=== PATIENT | female | born 1950 | race Caucasian/White ===

== ENCOUNTER 2017-05-05 15:21 | Emergency (ER) | payer OTHER, MEDICARE ==
[2017-05-05 15:26] VITALS: BP 97/55; PULSE 94; TEMP 97.6; BMI 29.0
--- NOTE | 2017-05-05 17:14 | PDOC ---
History of Present Illness <Jose Morley - Last Filed: 05/05/17 18:14> - General History Source: Patient Exam Limitations: No Limitations - History of Present Illness Initial Comments: 05/05/17 17:17 The patient is a 67 year old female, with a significant past medical history of CAD(s/p stents), MA, hypertension, hyperlipidemia, hypothyroidism, lower extremity neuropathy, and anemia, who presents to the emergency department s/p mechanical injury yesterday morning. The patient reports she bent over and accidentally hit her head on the corner of the cabinet. Patient denies any loss of consciousness or dizziness. She reports swelling at the site of the injury, but denies ecchymosis. Patient reports some fuzziness in her vision. Now, patient reports a mild headache, that was not there when she hit her head. She denies any weakness, fever, chills, cough, dizziness, lightheadedness, or ear pain. She denies any chest pain, shortness of breath, diaphoresis, or palpitations. She denies any abdominal pain, nausea, vomiting, diarrhea, constipation, or changes in urination. She denies any recent travel or sick contacts. Patient is on plavix. Allergies: NKDA Past Surgical History: Cardiac Stents(X5), Gastric bypass(2003) Social History: Non smoker. No ETOH or recreational drug use. <Erik Majano - Last Filed: 05/05/17 18:22> - General Chief Complaint: Injury Stated Complaint: HEAD CONTUSION/ON PLAVIX Time Seen by Provider: 05/05/17 15:42 Past History - Past Medical History Anemia: Yes (VIT B12 DEF ANEMIA) Asthma: No Cancer: (mid chest skin cancer removed; scab still visible 06/08/2015) Cardiac Disorders: Yes (heart attack-2005/ stents, MIX2) CVA: No COPD: Yes (NODULES IN LUNG) CHF: No Dementia: No Diabetes: No GI Disorders: Yes Disorders: No HTN: Yes Hypercholesterolemia: Yes Liver Disease: No Seizures: No Thyroid Disease: Yes (HYPO) - Surgical History Abdominal Surgery: Yes (TUMMY TUCK, LIPOSUCTION ON LOWER BODY, gastric bypass 2003) Appendectomy: No Cardiac Surgery: Yes (5 STENTS) Cholecystectomy: Yes Gastric Stapling: No (GASTRIC BYPASS) Lung Surgery: No Neurologic Surgery: No Orthopedic Surgery: No - Psycho/Social/Smoking Cessation Hx Anxiety: No Suicidal Ideation: No Smoking Status: No Smoking History: Never smoked Have you smoked in the past 12 months: No Number of Cigarettes Smoked Daily: 0 If you are a former smoker, when did you quit?: 15 Information on smoking cessation initiated: No Hx Alcohol Use: No Drug/Substance Use Hx: No Substance Use Type: None Hx Substance Use Treatment: No <Jose Morley - Last Filed: 05/05/17 18:14> <Erik Majano - Last Filed: 05/05/17 18:22> - Past Medical History Allergies/Adverse Reactions: Allergies Allergy/AdvReac Type Severity Reaction Status Date / Time No Known Allergies Allergy Verified 05/05/17 15:26 Home Medications: Ambulatory Orders Zoledronic Acid/Man/Water [Reclast 5 Mg/100 Ml -] 5 mg IV 06/08/12 Aspirin [ASA -] 81 mg PO DAILY 04/26/15 Atorvastatin Ca [Lipitor] 40 mg PO HS 04/26/15 Carvedilol [Coreg] 3.125 mg PO BID 04/26/15 Clopidogrel Bisulfate [Plavix -] 75 mg PO DAILY 04/26/15 Esomeprazole Mag Trihydrate [Nexium] 40 mg PO DAILY 04/26/15 Levothyroxine Sodium [Unithroid] 125 mcg PO DAILY 04/26/15 Lorazepam [Ativan] 0.5 mg PO PRN 04/26/15 Pregabalin [Lyrica] 100 mg PO BID 04/26/15 Polyethylene Glycol 3350 [Miralax] 17 gm PO BID #2 bottle 02/09/16 Cyanocobalamin Vit B-12 Inj. [Vitamin B12 Injection -] 1,000 mcg IJ ASDIR Multivitamin,Therapeutic [[place] Therapeutic] 240 ml PO DAILY 03/07/16 Zoledronic Acid/Mannitol-Water [Zoledronic Acid 5 mg/100 ml] 5 mg IV ASDIR 03/07 Review of Systems - Review of Systems Able to Perform ROS?: Yes Comments:: 05/05/17 17:17 GENERAL/CONSTITUTIONAL: No fever or chills. No weakness. HEAD, EYES, EARS, NOSE AND THROAT: Yes: +blurry vision, +swelling at site of injury. No ear pain or discharge. No sore throat. CARDIOVASCULAR: No chest pain or shortness of breath. RESPIRATORY: No cough, wheezing, or hemoptysis. GASTROINTESTINAL: No nausea, vomiting, diarrhea or constipation. GENITOURINARY: No dysuria, frequency, or change in urination. MUSCULOSKELETAL: No joint or muscle swelling or pain. No neck or back pain. SKIN: No rash NEUROLOGIC: Yes: +headache. No vertigo, loss of consciousness, or change in strength/sensation. ENDOCRINE: No increased thirst. No abnormal weight change. HEMATOLOGIC/LYMPHATIC: No anemia, easy bleeding, or history of blood clots. ALLERGIC/IMMUNOLOGIC: No hives or skin allergy. <Erik Majano - Last Filed: 05/05/17 18:22> *Physical Exam - Vital Signs Last Vital Signs Temp Pulse Resp BP Pulse Ox 97.6 F 94 H 18 97/55 99 05/05/17 15:24 05/05/17 15:24 05/05/17 15:24 05/05/17 15:24 05/05/17 15:58 <Jose Morley - Last Filed: 05/05/17 18:14> - Vital Signs Last Vital Signs Temp Pulse Resp BP Pulse Ox 97.6 F 94 H 18 97/55 99 05/05/17 15:24 05/05/17 15:24 05/05/17 15:24 05/05/17 15:24 05/05/17 15:58 - Physical Exam Comments: 05/05/17 17:18 GENERAL: Awake, alert, and fully oriented, in no acute distress HEAD: No signs of trauma EYES: PERRLA, EOMI, sclera anicteric, conjunctiva clear ENT: Auricles normal inspection, hearing grossly normal, nares patent, oropharynx clear without exudates. Moist mucosa. No blood in TMs. NECK: Normal ROM, supple, no lymphadenopathy, JVD, or masses. No meningismus. LUNGS: Breath sounds equal, clear to auscultation bilaterally. No wheezes, and no crackles HEART: Regular rate and rhythm, normal S1 and S2, no murmurs, rubs or gallops ABDOMEN: Soft, nontender, normoactive bowel sounds. No guarding, no rebound. No masses EXTREMITIES: Normal range of motion, no edema. No clubbing or cyanosis. No cords, erythema, or tenderness NEUROLOGICAL: Cranial nerves II through XII grossly intact. Normal speech, normal gait SKIN: Warm, Dry, normal turgor, no rashes or lesions noted. <Erik Majano - Last Filed: 05/05/17 18:22> ED Treatment Course - RADIOLOGY Radiology Studies Ordered: Category Date Time Status HEAD CT WITHOUT CONTRAST [CT] Stat CT Scan 05/05/17 16:23 Ordered <Jose Morley - Last Filed: 05/05/17 18:14> - RADIOLOGY Radiograph Interpretation: 05/05/17 18:21 EXAM: Head CT INTERPRETED BY: Dr. Styles REVIEWED BY: Dr. Morley IMPRESSION: No CT evidence of acute intracranial pathology. <Erik Majano - Last Filed: 05/05/17 18:22> *DC/Admit/Observation/Transfer - Discharge Dispostion Admit: No - Attestations Physician Attestion: 05/05/17 17:13 I, Dr. Jose Morley, attest that this document has been prepared under my direction and personally reviewed by me in its entirety. I further attest, that it accurately reflects all work, treatment, procedures and medical decision -making performed by me. <Jose Morley - Last Filed: 05/05/17 18:14> - Attestations Scribe Attestion: 05/05/17 17:18 Documentation prepared by Erik Majano, acting as medical policy specialist for Jose Morley DO. <Erik Majano - Last Filed: 05/05/17 18:22> Diagnosis at time of Disposition: Head injury, Thyroid disorder - Referrals Referrals: Leta Owusu [Primary Care Provider] - - Patient Instructions Printed Discharge Instructions: DI for Closed Head Injury Additional Instructions: Mrs Aguilar Santi- Chloery this happened. Your CT Scan and your TSH Level are both normal. Return to us if any problems. Take tylenol for headache. Best- Dr. Jose Morley
--- NOTE | 2017-05-06 09:23 | EKG ---
Test Reason : Blood Pressure : / mmHG Vent. Rate : 083 BPM Atrial Rate : 083 BPM P-R Int : 154 ms QRS Dur : 088 ms QT Int : 368 ms P-R-T Axes : 073 049 080 degrees QTc Int : 432 ms NORMAL SINUS RHYTHM NONSPECIFIC T WAVE ABNORMALITY OTHERWISE NORMAL ECG Confirmed by MD YOUSIF, GEOFFREY ([id number]) on 05/06/2017 9:23:24 AM Referred By: Confirmed By:GEOFFREY DODD MD
== END 2017-05-05 18:38 | disposition home or self-care (01) ==
LOC: JER 15:21
DX: S09.8XXA Other specified injuries of head, initial encounter (principal); S00.83XA Contusion of other part of head, initial encounter; W22.8XXA Striking against or struck by other objects, initial encounter; Y93.89 Activity, other specified; Y92.038 Other place in apartment as the place of occurrence of the external cause; I25.10 Atherosclerotic heart disease of native coronary artery without angina pectoris; I10 Essential (primary) hypertension; Z95.5 Presence of coronary angioplasty implant and graft; I25.2 Old myocardial infarction; Z79.01 Long term (current) use of anticoagulants; E78.00 Pure hypercholesterolemia, unspecified; E03.9 Hypothyroidism, unspecified; G62.9 Polyneuropathy, unspecified; D51.3 Other dietary vitamin B12 deficiency anemia
CPT/HCPCS: 36415; 70450-TC; 84443; 93005; 93010; 99283-25

== ENCOUNTER 2019-01-04 09:11 | Inpatient (IN) | payer OTHER, MEDICARE ==
[2019-01-04 09:42] VITALS: BMI 28.4
[2019-01-04 10:57] LABS: BASO % 1.3 % (0-2.0); EOS % 5.6 % (0-4.5); HEMATOCRIT 33.8 % (32.4-45.2); HEMOGLOBIN 10.3 GM/dL (10.7-15.3); MCH 24.5 pg (25.7-33.7); MCHC 30.5 g/dl (32.0-36.0); MEAN CELL VOLUME 80.1 fl (80-96); MEAN PLT VOLUME 8.4 fl (7.5-11.1); MONO % 6.9 % (3.8-10.2); NEUT % 63.2 % (42.8-82.8); PLATELET COUNT 188 K/MM3 (134-434); RBC 4.22 M/mm3 (3.60-5.2); RDW 17.2 % (11.6-15.6); WHITE BLOOD COUNT 3.3 K/mm3 (4.0-10.0)
--- NOTE | 2019-01-04 11:11 | PDOC ---
Documentation entered by Gomez Arshad SCRIBE, acting as scribe for Josh Monique MD. Josh Monique MD: This documentation has been prepared by the Pavithra win Nirvannie, SCRIBE, under my direction and personally reviewed by me in its entirety. I confirm that the documentation accurately reflects all work, treatment, procedures, and medical decision making performed by me. History of Present Illness - General Chief Complaint: Chest Pain Stated Complaint: CHEST PAIN Time Seen by Provider: 01/04/19 09:49 History Source: Patient Exam Limitations: No Limitations - History of Present Illness Initial Comments: 01/04/19 10:39 CC: Chest pain HPI: The patient is a 68 year old female, with a significant past medical history of CAD(s/p TX and cardiac stenting x5), hypertension, hyperlipidemia, and anemia, who presents to the emergency department with, 2 days of intermittent sharp, stabbing, short lasting chest pain with associated left arm tightness. Patient notes her pain to be similar to her gas, however, secondary to its continuation she reported to the ED. Patient notes a recent admission 07/2018 to a hospital in [place] for a possible GI bleed at which time she was noted to have ?peptic ulcers and anemia. She denies any palpitations or shortness of breath. She denies recent fevers, chills, headache or dizziness. She denies recent nausea, vomit, diarrhea or constipation. She denies recent dysuria, frequency, urgency or hematuria. Allergies: NKA Past surgical history: Cardiac stenting x5. Gastric bypass (04). Social history: Former smoker. Primary Care Physician: Dr. Leta Owusu Tower Helper: Dr. Phan Past History - Past Medical History Allergies/Adverse Reactions: Allergies Allergy/AdvReac Type Severity Reaction Status Date / Time No Known Allergies Allergy Verified 01/04/19 09:30 Home Medications: Ambulatory Orders Aspirin [ASA -] 81 mg PO DAILY 04/26/15 Atorvastatin Ca [Lipitor] 40 mg PO HS 04/26/15 Carvedilol [Coreg] 3.125 mg PO BID 04/26/15 Clopidogrel Bisulfate [Plavix -] 75 mg PO DAILY 04/26/15 Levothyroxine Sodium [Unithroid] 125 mcg PO DAILY 04/26/15 Lorazepam [Ativan] 0.5 mg PO PRN 04/26/15 Pregabalin [Lyrica] 100 mg PO BID 04/26/15 Polyethylene Glycol 3350 [Miralax] 17 gm PO BID #2 bottle 02/09/16 Cyanocobalamin Vit B-12 Inj. [Vitamin B12 Injection -] 1,000 mcg IJ ASDIR Multivitamin,Therapeutic [[place] Therapeutic] 240 ml PO DAILY 03/07/16 Pantoprazole Sodium 40 mg PO DAILY 01/04/19 Valacyclovir HCl [Valtrex -] 1,000 mg PO ASDIR 01/04/19 Anemia: Yes (VIT B12 DEF ANEMIA) Asthma: No Cancer: (mid chest skin cancer removed; scab still visible 06/08/2015) Cardiac Disorders: Yes (heart attack- stents, MIX2) CVA: No COPD: Yes (NODULES IN LUNG) CHF: No Dementia: No Diabetes: No GI Disorders: Yes Disorders: No HTN: Yes Hypercholesterolemia: Yes Liver Disease: No Seizures: No Thyroid Disease: Yes (HYPO) - Surgical History Abdominal Surgery: Yes (TUMMY TUCK, LIPOSUCTION ON LOWER BODY, gastric bypass 2003) Appendectomy: No Cardiac Surgery: Yes (5 STENTS) Cholecystectomy: Yes Gastric Stapling: No (GASTRIC BYPASS) Lung Surgery: No Neurologic Surgery: No Orthopedic Surgery: No - Suicide/Smoking/Psychosocial Hx Smoking Status: No Smoking History: Never smoked Have you smoked in the past 12 months: No Number of Cigarettes Smoked Daily: 0 If you are a former smoker, when did you quit?: 15 Information on smoking cessation initiated: No Hx Alcohol Use: No Drug/Substance Use Hx: No Substance Use Type: None Hx Substance Use Treatment: No Review of Systems - Review of Systems Able to Perform ROS?: Yes Comments:: 01/04/19 10:45 ROS: A complete review of 10 out of 10 review of systems is taken and is negative apart from what is previously mentioned below and in the HPI. *Physical Exam - Vital Signs Last Vital Signs Temp Pulse Resp BP Pulse Ox 98 F 100 H 17 105/43 L 100 01/04/19 09:28 01/04/19 09:28 01/04/19 09:28 01/04/19 09:28 01/04/19 09:28 - Physical Exam Comments: 01/04/19 10:46 Exam: Vitals: Triage Vital signs reviewed General Appearance: no acute distress, well nourished well developed, Head: Atraumatic, normocephalic Neck: Supple Chest Wall: Nontender Cardiac: Regular rate and rhythm, no murmurs, no rubs, no gallops, Lungs: Clear to auscultation bilateral, good air movement bilaterally, Abdomen: Soft, nondistended, normal bowel sounds, nontender to palpation Rectal: External hemorrhoid with brown stool in the vault. Extremities: Full range of motion to all extremities, no cyanosis, clubbing, or edema Skin: Warm and dry, no rashes or lesions, no petechiae Neuro: AOX3; Cranial Nerves 2-12 grossly intact, Strength intact to all extremities, Sensation intact to all extremities Psych: normal mood, normal affect Heart Score/ECG Review - History History: Slightly suspicious - Electrocardiogram EKG: Normal - Age Age: >/= 65 - Risk Factors Risk Factors Heart Score: Yes Hx Hypercholesterolemia, Yes Hx Hypertension, Yes Smoking History, Yes Positive family hx of cardiac disease Based on the list above the patient has:: >/=3 risk factors or Hx atherosclerotic disease - Troponin Troponin: </= normal limit - Score Heart Score - Total: 4 - ECG Impressions Comment:: 01/04/19 11:54 EKG performed at 937 demonstrates normal sinus rhythm no ST elevations or T- wave inversions. Interpreted by me. ED Treatment Course - LABORATORY CBC & Chemistry Diagram: 01/04/19 10:10 01/04/19 10:10 Medical Decision Making - Medical Decision Making 01/04/19 10:39 68 year old female, with a significant past medical history of CAD(s/p TX and cardiac stenting x5), hypertension, hyperlipidemia, and anemia, who presents to the emergency department with, 2 days of intermittent sharp, stabbing, short lasting chest pain with associated left arm tightness Plan is: Rectal exam CBC CMP Cardiac profile/monitoring EKG Magnesium Coag Chest Xray 01/04/19 11:54 2 complaints today in the emergency department. First complaint is chest discomfort left sided with radiation given patient's risk factors heart score of 4 patient will require observation on telemetry first troponin is negative Second complaint is some blood when wiping this morning does have history of hemorrhoids no actively bleeding hemorrhoid noted on rectal examination guaiac negative stool hemoglobin is 10.3 we'll trend We'll observe under the service of Dr. Owusu for further management. *DC/Admit/Observation/Transfer Diagnosis at time of Disposition: Chest pain Qualifiers: Chest pain type: unspecified Qualified Code(s): R07.9 - Chest pain, unspecified - Discharge Dispostion Disposition: HOME Decision to Admit order: Yes - Referrals Referrals: Leta Owusu [Primary Care Provider] - - Patient Instructions - Post Discharge Activity
[2019-01-04 11:26] LABS: ALBUMIN 3.3 g/dl (3.4-5.0); ALK PHOS 62 U/L (45-117); ANION GAP 4 MMOL/L (8-16); BILIRUBIN,TOTAL 0.4 mg/dL (0.2-1); BLOOD UREA NITROGEN 8 mg/dL (7-18); CALCIUM 8.8 mg/dL (8.5-10.1); CHLORIDE 110 mmol/L (98-107); CO2 27 mmol/L (21-32); CREATININE 0.5 mg/dL (0.55-1.3); GLUCOSE,RANDOM 92 mg/dL (74-106); MAGNESIUM 2.5 mg/dL (1.8-2.4); POTASSIUM 4.2 mmol/L (3.5-5.1); SGOT/AST 17 U/L (15-37); SGPT/ALT 23 U/L (13-61); SODIUM 141 mmol/L (136-145); TOT PROT 5.8 g/dl (6.4-8.2)
[2019-01-04 12:22] LABS: INR 1.1 (0.83-1.09)
[2019-01-04] MEDS ORDERED: FAMOTIDINE 20 MG/50 ML IVPB 20 MG/50 ML MG IVPB ONE ×2 (12:45→13:21)
--- NOTE | 2019-01-04 14:34 | HP ---
Admitting History and Physical - Primary Care Physician PCP: Leta Owusu S - Admission Chief Complaint: CP, lower GI bleed History of Present Illness: The patient is a 68 year old female, with a significant past medical history of CAD(s/p TX and cardiac stenting x5), hypertension, hyperlipidemia, and anemia, who presents to the emergency department with 2 days of intermittent sharp, stabbing, short lasting chest pain with associated left arm tightness. Patient notes her pain to be similar to her gas, however, secondary to its continuation she reported to the ED. Patient notes a recent admission 07/2018 to a hospital in [place] for a possible GI bleed at which time she was noted to have ?peptic ulcers? and anemia. She denies any palpitations or shortness of breath. She denies recent fevers, chills, headache or dizziness. She denies recent nausea, vomit, diarrhea or constipation. She denies recent dysuria, frequency, urgency or hematuria. History Source: Patient Limitations to Obtaining History: No Limitations - Past Medical History Cardiovascular: Yes: CAD, HTN Gastrointestinal: Yes: Hemorrhoids, Other (s/p GI bypass) - Smoking History Smoking history: Never smoked Have you smoked in the past 12 months: No Aproximately how many cigarettes per day: 0 If you are a former smoker, when did you quit?: 15 - Alcohol/Substance Use Hx Alcohol Use: No History of Substance Use: reports: None - Social History Usual Living Arrangement: Yes: With Spouse ADL: Independent History of Recent Travel: Yes Home Medications - Allergies Allergies/Adverse Reactions: Allergies Allergy/AdvReac Type Severity Reaction Status Date / Time No Known Allergies Allergy Verified 01/04/19 09:30 - Home Medications Home Medications: Ambulatory Orders Aspirin [ASA -] 81 mg PO DAILY 04/26/15 Atorvastatin Ca [Lipitor] 40 mg PO HS 04/26/15 Carvedilol [Coreg] 3.125 mg PO BID 04/26/15 Clopidogrel Bisulfate [Plavix -] 75 mg PO DAILY 04/26/15 Levothyroxine Sodium [Unithroid] 125 mcg PO DAILY 04/26/15 Lorazepam [Ativan] 0.5 mg PO PRN 04/26/15 Pregabalin [Lyrica] 100 mg PO BID 04/26/15 Polyethylene Glycol 3350 [Miralax] 17 gm PO BID #2 bottle 02/09/16 Cyanocobalamin Vit B-12 Inj. [Vitamin B12 Injection -] 1,000 mcg IJ ASDIR Multivitamin,Therapeutic [[place] Therapeutic] 240 ml PO DAILY 03/07/16 Pantoprazole Sodium 40 mg PO DAILY 01/04/19 Iron Polysaccharides [Niferex-150 -] 150 mg PO DAILY #30 capsule 01/06/19 Mag Hydrox/Al Hydrox/Simeth [Mylanta Oral Suspension -] 30 ml PO Q6H PRN cup Valacyclovir HCl [Valtrex -] 500 mg PO DAILY #30 tab 01/06/19 Family Disease History - Family Disease History Family History: Unremarkable Review of Systems - Review of Systems Constitutional: denies: Chills, Fever Eyes: denies: Blind Spots, Blurred Vision, Double Vision HENT: denies: Epistaxis Neck: denies: Pain on Movement, Stiffness Cardiovascular: reports: Chest Pain. denies: Edema, Palpitations, Shortness of Breath Respiratory: denies: Cough, SOB, SOB on Exertion Gastrointestinal: reports: Rectal Bleeding. denies: Abdominal Pain, Bloating, Vomiting, Vomiting Blood Genitourinary: denies: Dysuria, Flank Pain Musculoskeletal: denies: Back Pain, Joint Swelling Neurological: denies: Change in LOC, Change in Speech, Confusion, Dizziness, Unsteady Gait, Weakness Hematology/Lymphatic: denies: Easily Bruised, Excessive Bleeding, Swollen Glands Psychiatric: denies: Altered Sleep Pattern, Anxiety, Depression, Suicidal Physical Examination Vital Signs: Vital Signs Temperature 98 F 01/04/19 09:28 Pulse Rate 100 H 01/04/19 09:28 Respiratory Rate 17 01/04/19 09:28 Blood Pressure 105/43 L 01/04/19 09:28 O2 Sat by Pulse Oximetry (%) 100 01/04/19 09:28 Constitutional: Yes: No Distress, Calm Eyes: Yes: Conjunctiva Clear HENT: Yes: Atraumatic Neck: Yes: Supple Cardiovascular: Yes: Regular Rate and Rhythm Respiratory: Yes: CTA Bilaterally Gastrointestinal: Yes: Soft. No: Tenderness Renal/: No: CVA Tenderness - Left, CVA Tenderness - Right Musculoskeletal: No: Joint Stiffness, Joint Swelling Extremities: No: Cold, Cool, Cyanosis Edema: No (lymphedema legs ) Integumentary: No: Rash, Venous Stasis Changes Neurological: Yes: WNL, Alert, Oriented ...Motor Strength: WNL Psychiatric: Yes: WNL, Alert, Oriented. No: Agitated, Suicidal Ideation Labs: CBC, BMP 01/04/19 10:10 01/04/19 10:10 Imaging - Results Chest X-ray: Report Reviewed Other: Report Reviewed Assessment/Plan The patient is a 68 year old female, with a significant past medical history of CAD(s/p TX and cardiac stenting x5), hypertension, hyperlipidemia, and anemia, who presents to the emergency department with, 2 days of intermittent sharp, stabbing, short lasting chest pain with associated left arm tightness. s/p recent peptic ulcers, hemorrhoids and anemia. admit to telemetry CE x 3 ; cardiology and GI eval; f/u labs; echo, stress test per cardiology dw pt
--- NOTE | 2019-01-04 16:09 | CON.GI ---
Consult Consult Specialty:: Gastroenterology Referred by:: Dr. Owusu Reason for Consultation:: Chest pain. Rectal bleeding - History of Present Illness Chief Complaint: Chest pain History of Present Illness: 68F presents with chest pain that she believes is due to her chronic dyspepsia, eructation and gas and which is relieved by belching repeatedly. She is being admitted however to [facility] as she has had 2 previous MIs and been stensted. She reports that she had an EGD in 09/15 in [place], [place] for bleeding and was told that she had gastritis for whic she takes Nexium. She had a gastric bypass in 2002 at [facility]. She was previously followed by Dr. Mendiola and more recently by Dr Ijeoma Zurita. She switched after she had a postpolypectomy bleed. She reports that she last had a colonoscopy with Dr Ned Zurita 3 years ago but is not sure whether polyps were removed at that time. She is taking Plavix and noted transient rectal bleeding yesterday after passing a hard stool. NO overt bleeding today. No FH of GI malignancies. She is followed with annual MRCPs by Dr Bose at [facility] for a dilated CBD. She is s /p lap choly. I cannot find her in our endopro program. She appears to have had EGDs with Dr HARRELL in and but the reports won't open in [facility]. Biopsies of her efferent and afferent loops were unremarkable. - History Source History Provided By: Patient Limitations to Obtaining History: No Limitations - Past Medical History Cardio/Vascular: Yes: CAD (coronary stenting, the last in 2007), HTN, Hyperlipdemia, SC (2 MIs, the last in 2005) Gastrointestinal: Yes: Constipation, Gastritis, GERD (chronic reflux), GI Bleed (09/15 GIB with gastirtis found at EGD in [place], [place]), Hemorrhoids, Hiatal Hernia, Other (Gastric bypass 2002, colon polyps removed) Hepatobiliary: Yes: Other (dilated CBD, fatty liver) Heme/Onc: Yes: B12 Deficiency (related to gastric bypass) Endocrine: Yes: Hypothyroidism - Past Surgical History Past Surgical History: Yes: Bariatric Surgery (gastric bypass 2002), Breast Biopsy (benign right breast biopsies), Cholecystectomy (laparoscopic), Colonoscopy, Tonsillectomy, Upper Endoscopy Additional Surgical History: "butt lift" surgery with liposuction of abdomen and legs that leg to 4 unit PRBC transfusion bleeding - Alcohol/Substance Use Hx Alcohol Use: Yes (rare) History of Substance Use: reports: None - Smoking History Smoking history: Former smoker Have you smoked in the past 12 months: No Aproximately how many cigarettes per day: 0 If you are a former smoker, when did you quit?: 1998 - Social History Usual Living Arrangement: With Spouse ADL: Independent Place of : [facility] History of Recent Travel: Yes ([place] recently) Home Medications - Allergies Allergies/Adverse Reactions: Allergies Allergy/AdvReac Type Severity Reaction Status Date / Time No Known Allergies Allergy Verified 01/04/19 09:30 - Home Medications Home Medications: Ambulatory Orders Aspirin [ASA -] 81 mg PO DAILY 04/26/15 Atorvastatin Ca [Lipitor] 40 mg PO HS 04/26/15 Carvedilol [Coreg] 3.125 mg PO BID 04/26/15 Clopidogrel Bisulfate [Plavix -] 75 mg PO DAILY 04/26/15 Levothyroxine Sodium [Unithroid] 125 mcg PO DAILY 04/26/15 Lorazepam [Ativan] 0.5 mg PO PRN 04/26/15 Pregabalin [Lyrica] 100 mg PO BID 04/26/15 Polyethylene Glycol 3350 [Miralax] 17 gm PO BID #2 bottle 02/09/16 Cyanocobalamin Vit B-12 Inj. [Vitamin B12 Injection -] 1,000 mcg IJ ASDIR Multivitamin,Therapeutic [[place] Therapeutic] 240 ml PO DAILY 03/07/16 Pantoprazole Sodium 40 mg PO DAILY 01/04/19 Valacyclovir HCl [Valtrex -] 1,000 mg PO ASDIR 01/04/19 Family Disease History - Family Disease History Family Disease History: CA: Mother ( 45 breast and lung cancers), Other: Father (lived to 93) Review of Systems - Review of Systems Constitutional: reports: No Symptoms Eyes: reports: No Symptoms HENT: reports: No Symptoms Neck: reports: No Symptoms Cardiovascular: reports: Chest Pain Gastrointestinal: reports: Bloating, Constipation, Rectal Bleeding Physical Exam-GI Vital Signs: Vital Signs Temperature 98 F 01/04/19 09:28 Pulse Rate 100 H 01/04/19 09:28 Respiratory Rate 17 01/04/19 09:28 Blood Pressure 105/43 L 01/04/19 09:28 O2 Sat by Pulse Oximetry (%) 100 01/04/19 09:28 CBC,CMP WBC 3.3 K/mm3 (4.0-10.0) L 01/04/19 10:10 RBC 4.22 M/mm3 (3.60-5.2) 01/04/19 10:10 Hgb 10.3 GM/dL (10.7-15.3) L 01/04/19 10:10 Hct 33.8 % (32.4-45.2) D 01/04/19 10:10 MCV 80.1 fl (80-96) 01/04/19 10:10 MCH 24.5 pg (25.7-33.7) L D 01/04/19 10:10 MCHC 30.5 g/dl (32.0-36.0) L 01/04/19 10:10 RDW 17.2 % (11.6-15.6) H 01/04/19 10:10 Plt Count 188 K/MM3 (134-434) 01/04/19 10:10 MPV 8.4 fl (7.5-11.1) 01/04/19 10:10 Absolute Neuts (auto) 2.1 K/mm3 (1.5-8.0) 01/04/19 10:10 Neutrophils % 63.2 % (42.8-82.8) 01/04/19 10:10 Lymphocytes % 23.0 % (8-40) D 01/04/19 10:10 Monocytes % 6.9 % (3.8-10.2) 01/04/19 10:10 Eosinophils % 5.6 % (0-4.5) H 01/04/19 10:10 Basophils % 1.3 % (0-2.0) 01/04/19 10:10 Nucleated RBC % 0 % (0-0) 01/04/19 10:10 Sodium 141 mmol/L (136-145) 01/04/19 10:10 Potassium 4.2 mmol/L (3.5-5.1) 01/04/19 10:10 Chloride 110 mmol/L (98-107) H 01/04/19 10:10 Carbon Dioxide 27 mmol/L (21-32) 01/04/19 10:10 Anion Gap 4 MMOL/L (8-16) L 01/04/19 10:10 BUN 8 mg/dL (7-18) 01/04/19 10:10 Creatinine 0.5 mg/dL (0.55-1.3) L 01/04/19 10:10 Est GFR (CKD-EPI)AfAm 115.26 01/04/19 10:10 Est GFR (CKD-EPI)NonAf 99.45 01/04/19 10:10 Random Glucose 92 mg/dL (74-106) 01/04/19 10:10 Calcium 8.8 mg/dL (8.5-10.1) 01/04/19 10:10 Magnesium 2.5 mg/dL (1.8-2.4) H 01/04/19 10:10 Total Bilirubin 0.4 mg/dL (0.2-1) 01/04/19 10:10 AST 17 U/L (15-37) 01/04/19 10:10 ALT 23 U/L (13-61) 01/04/19 10:10 Alkaline Phosphatase 62 U/L (45-117) 01/04/19 10:10 Creatine Kinase 42 U/L (26-192) 01/04/19 10:10 Troponin I < 0.02 ng/ml (0.00-0.05) 01/04/19 10:10 Total Protein 5.8 g/dl (6.4-8.2) L 01/04/19 10:10 Albumin 3.3 g/dl (3.4-5.0) L 01/04/19 10:10 Current Medications Generic Name Dose Route Start Last Admin Trade Name Freq PRN Reason Stop Dose Admin Aspirin 81 mg 01/05/19 10:00 Asa - PO DAILY [facility] Atorvastatin Calcium 40 mg 01/04/19 22:00 Lipitor - PO HS [facility] Carvedilol 3.125 mg 01/04/19 22:00 Coreg - PO BID [facility] Clopidogrel Bisulfate 75 mg 01/05/19 10:00 Plavix - PO DAILY [facility] Levothyroxine Sodium 125 mcg 01/05/19 10:00 Synthroid - PO DAILY [facility] Pantoprazole Sodium 40 mg 01/05/19 10:00 Protonix - PO DAILY [facility] Polyethylene Glycol 17 gm 01/04/19 22:00 Miralax (For Daily Use) - PO BID [facility] Pregabalin 100 mg 01/04/19 22:00 Lyrica - PO BID [place] Constitutional: Yes: Anxious Eyes: Yes: Conjunctiva Clear HENT: Yes: Atraumatic Neck: Yes: Trachea Midline Cardiovascular: Yes: Regular Rate and Rhythm Respiratory: Yes: CTA Bilaterally Gastrointestinal Inspection: Yes: Scars (healed laparoscopic and low transverse superior gluteal incisions) ...Auscultate: Yes: Normoactive Bowel Sounds ...Palpate: Yes: Soft, Other (nontender) ...Rectal Exam: Yes: Guaiac Positive (dark brown guaiac positive stool), Hemorrhoids/External Edema: LLE: 2+, RLE: 2+ Neurological: Yes: Alert, Oriented Labs: CBC, BMP 01/04/19 10:10 01/04/19 10:10 INR, PTT INR 1.10 (0.83-1.09) H 01/04/19 10:10 Problem List - Problems (1) Flatulence/gas pain/belching Assessment/Plan: Given her intuition I am inclined to agree that the chest pain is due to gas pain an belching which is not uncommon with the digestive challenges posed by a gastric bypass. Antacids and Miraax should suffice. She had a recent EGD and does not appear to need one at this time Code(s): R14.0 - ABDOMINAL DISTENSION (GASEOUS) (2) Rectal bleeding Assessment/Plan: I again agree with the patient that her overt and occult bleeding is due to hemorrhoids aggravated by yesterday's hard stool ( forgot to take her Miralax) but given her h/o polyps and relative anemia I have advised a repeat colonoscopy when she is cardiologically cleared and can have her Plavix interrupted for 8 days so as to avoid another postpolypectomy bleed. This can be done as an outpatient unless cardiology feels otherwise. Code(s): K62.5 - HEMORRHAGE OF ANUS AND RECTUM (3) History of colon polyps Code(s): Z86.010 - PERSONAL HISTORY OF COLONIC POLYPS (4) Occult blood in stools Code(s): R19.5 - OTHER FECAL ABNORMALITIES (5) Bariatric surgery status Code(s): Z98.84 - BARIATRIC SURGERY STATUS (6) Gastric bypass status for obesity Code(s): Z98.84 - BARIATRIC SURGERY STATUS (7) Hiatal hernia with GERD Assessment/Plan: Given her chronic reflux her PPI should be continued. Code(s): K21.9 - GASTRO-ESOPHAGEAL REFLUX DISEASE WITHOUT ESOPHAGITIS; K44.9 - DIAPHRAGMATIC HERNIA WITHOUT OBSTRUCTION OR GANGRENE (8) Fatty (change of) liver, not elsewhere classified Code(s): K76.0 - FATTY (CHANGE OF) LIVER, NOT ELSEWHERE CLASSIFIED (9) Dilated bile duct Assessment/Plan: she will followup with Dr Bose. LFTs are unremarkable Code(s): K83.8 - OTHER SPECIFIED DISEASES OF BILIARY TRACT (10) Gastritis Code(s): K29.70 - GASTRITIS, UNSPECIFIED, WITHOUT BLEEDING (11) Post-polypectomy bleeding Assessment/Plan: by history Code(s): PDZ4729 - (12) Stented coronary artery Code(s): Z95.5 - PRESENCE OF CORONARY ANGIOPLASTY IMPLANT AND GRAFT (13) History of myocardial infarction Code(s): I25.2 - OLD MYOCARDIAL INFARCTION (14) Hyperlipidemia Code(s): E78.5 - HYPERLIPIDEMIA, UNSPECIFIED (15) Hypothyroid Code(s): E03.9 - HYPOTHYROIDISM, UNSPECIFIED (16) Constipation Code(s): K59.00 - CONSTIPATION, UNSPECIFIED Assessment/Plan Impression: Chest pain due to gas leading to eructation related to gastric bypass maldigestion which is chronic Rectal and occult bleeding is likely hemorrhoidal given it's self limited nature and relation to a hard fecalith but it merits a repeat colonoscopy given her relative anemia and h/o colon polyp HH with GERD Bariatric surgery status- gastric bypass Chronic constipation Personal h/o colon polyps and post polypectomy bleed Dilated CBD with normal LFTs likely postcholecystectomy related Fatty liver with normal LFTs Plan: Continue Miralax and PPI Please refer to us, Dr Ijeoma Zurita or perhaps someone who can see her soonest to arrange colonoscopy when cardiologicaly cleared and able to interrupt Plavix for 8 days prior to the procedure and perhaps longer postprocedure. Mylanta prn Anemia evaluation Dr Tyler will be covering this weekend
--- NOTE | 2019-01-04 16:09 | EKG ---
Test Reason : Blood Pressure : / mmHG Vent. Rate : 075 BPM Atrial Rate : 075 BPM P-R Int : 154 ms QRS Dur : 086 ms QT Int : 376 ms P-R-T Axes : 074 030 080 degrees QTc Int : 419 ms NORMAL SINUS RHYTHM NORMAL ECG WHEN COMPARED WITH ECG OF 05-MAY-2017 15:34, NO SIGNIFICANT CHANGE WAS FOUND Confirmed by HARLEY NARANJO MD ([id number]) on 01/04/2019 4:09:18 PM Referred By: Confirmed By:HARLEY NARANJO MD
[2019-01-04] MEDS ORDERED: MAG HYDROX/AL HYDROX/SIMETH 30 ML UNIT-DOSE CUP PO PRN (16:39)
[2019-01-04] MEDS: ATORVASTATIN CA 40 MG TABLET (FP) PO SCH (21:06)
[2019-01-04] MEDS: CARVEDILOL 3.125 MG TABLET (FP) PO SCH (21:06)
[2019-01-04] MEDS: PREGABALIN 100 MG CAPSULE PO SCH (21:06)
[2019-01-04] MEDS: POLYETHYLENE GLYCOL 3350 119 GM BTL PO SCH (21:07)
[2019-01-04] MEDS: LORazepam 0.5 MG TABLET PO PRN (23:31)
[2019-01-05 08:08] LABS: BASO % 1.2 % (0-2.0); EOS % 9.1 % (0-4.5); HEMATOCRIT 30.9 % (32.4-45.2); HEMOGLOBIN 9.7 GM/dL (10.7-15.3); LYMPH % 31.6 % (8-40); MCH 24.9 pg (25.7-33.7); MCHC 31.4 g/dl (32.0-36.0); MEAN CELL VOLUME 79.4 fl (80-96); MEAN PLT VOLUME 8.9 fl (7.5-11.1); MONO % 9.1 % (3.8-10.2); PLATELET COUNT 174 K/MM3 (134-434); RBC 3.89 M/mm3 (3.60-5.2); RDW 17.6 % (11.6-15.6); RETICULOCYTES 1.03 % (0.5-1.5); WHITE BLOOD COUNT 3.4 K/mm3 (4.0-10.0)
[2019-01-05 08:29] LABS: ANION GAP 6 MMOL/L (8-16); BLOOD UREA NITROGEN 7 mg/dL (7-18); CALCIUM 8.4 mg/dL (8.5-10.1); CHLORIDE 111 mmol/L (98-107); CO2 26 mmol/L (21-32); CREATININE 0.4 mg/dL (0.55-1.3); GLUCOSE,RANDOM 78 mg/dL (74-106); POTASSIUM 3.9 mmol/L (3.5-5.1); SODIUM 143 mmol/L (136-145)
[2019-01-05] MEDS: ASPIRIN 81 MG CHEWABLE TABLETS PO SCH (09:28)
[2019-01-05] MEDS: CLOPIDOGREL BISULFATE 75 MG TABLET (FP) PO SCH (09:28)
[2019-01-05] MEDS: PREGABALIN 100 MG CAPSULE PO SCH ×2 (09:28→21:45)
[2019-01-05] MEDS: CARVEDILOL 3.125 MG TABLET (FP) PO SCH ×2 (09:28→21:45)
[2019-01-05] MEDS: LEVOTHYROXINE NA 125 MCG TABLET (FP) PO SCH (09:28)
[2019-01-05] MEDS: PANTOPRAZOLE 40 MG TABLET (FP) PO SCH (09:28)
--- NOTE | 2019-01-05 09:40 | PN ---
Progress Note, Physician Chief Complaint: no CP dropped a little H&H but no bleed seen by GI and cardio noted borderline low WBC; will ask heme eval; - Current Medication List Current Medications: Active Medications Al Hydroxide/Mg Hydroxide (Mylanta Oral Suspension -) 30 ml PO Q6H PRN PRN Reason: DYSPEPSIA Aspirin (Asa -) 81 mg PO DAILY [facility] Last Admin: 01/05/19 09:28 Dose: 81 mg Atorvastatin Calcium (Lipitor -) 40 mg PO HS [facility] Last Admin: 01/04/19 21:06 Dose: 40 mg Carvedilol (Coreg -) 3.125 mg PO BID [facility] Last Admin: 01/05/19 09:28 Dose: 3.125 mg Clopidogrel Bisulfate (Plavix -) 75 mg PO DAILY [facility] Last Admin: 01/05/19 09:28 Dose: 75 mg Levothyroxine Sodium (Synthroid -) 125 mcg PO DAILY [facility] Last Admin: 01/05/19 09:28 Dose: 125 mcg Lorazepam (Ativan -) 0.5 mg PO HS PRN PRN Reason: INSOMNIA Last Admin: 01/04/19 23:31 Dose: 0.5 mg Pantoprazole Sodium (Protonix -) 40 mg PO DAILY [facility] Last Admin: 01/05/19 09:28 Dose: 40 mg Polyethylene Glycol (Miralax (For Daily Use) -) 17 gm PO BID [facility] Last Admin: 01/04/19 21:07 Dose: Not Given Pregabalin (Lyrica -) 100 mg PO BID [facility] Last Admin: 01/05/19 09:28 Dose: 100 mg - Objective Vital Signs: Vital Signs Temperature 98.1 F 01/05/19 06:00 Pulse Rate 67 01/05/19 06:00 Respiratory Rate 18 01/05/19 06:00 Blood Pressure 118/44 L 01/05/19 06:00 O2 Sat by Pulse Oximetry (%) 98 01/04/19 21:00 Constitutional: Yes: No Distress, Calm Eyes: Yes: Conjunctiva Clear HENT: Yes: Atraumatic Neck: Yes: Supple Cardiovascular: Yes: Regular Rate and Rhythm Respiratory: Yes: CTA Bilaterally Gastrointestinal: Yes: Soft. No: Tenderness Genitourinary: No: CVA Tenderness - Left, CVA Tenderness - Right Musculoskeletal: No: Joint Stiffness, Joint Swelling Extremities: No: Cold, Cool, Cyanosis Edema: No Integumentary: No: Rash, Venous Stasis Changes Neurological: Yes: WNL, Alert, Oriented ...Motor Strength: WNL Psychiatric: Yes: WNL, Alert, Oriented. No: Agitated, Suicidal Ideation Labs: CBC, BMP 01/05/19 05:15 01/05/19 05:15 INR, PTT INR 1.10 (0.83-1.09) H 01/04/19 10:10 - ....Imaging Other: Report Reviewed Assessment/Plan The patient is a 68 year old female, with a significant past medical history of CAD(s/p ME and cardiac stenting x5), hypertension, hyperlipidemia, and anemia, admitted with atypical chest pain with associated left arm tightness. s/p recent peptic ulcers, hemorrhoids and anemia. monitor in telemetry CE x 3 ; cardiology and GI eval; f/u labs; heme eval for low WBC echo, stress test per cardiology dw pt
[2019-01-05] MEDS: POLYETHYLENE GLYCOL 3350 119 GM BTL PO SCH ×2 (11:38→21:45)
--- NOTE | 2019-01-05 14:21 | CON.CARD ---
Consult Consult Specialty:: cardiology Reason for Consultation:: chest pain; hx CAD/MS/PCIs - History of Present Illness Chief Complaint: Pt A7Ox3; anxious; occasional stabbing chest pains after eating History of Present Illness: The patient is a 68 year old white female, with a significant past medical history of CAD(s/p MS and cardiac stenting x5), hypertension, hyperlipidemia, bilateral LE lymphedema, and anemia, who presents to the emergency department with, 2 days of intermittent sharp, stabbing, short lasting chest pain with associated left arm tightness. Patient notes her pain to be similar to her gas, however, secondary to its continuation she reported to the ED. Patient notes a recent admission 07/2018 to a hospital in [place] for a possible GI bleed at which time she was noted to have ?peptic ulcers and anemia. She denies any palpitations or shortness of breath. She denies recent fevers, chills, headache or dizziness. She denies recent nausea, vomit, diarrhea or constipation. She denies recent dysuria, frequency, urgency or hematuria. Allergies: NKA Past surgical history: Cardiac stenting x5. Gastric bypass (). 2002: ?NSTEMI--coronary angiogram, but no PCI 2004: gastic bypass 2006: LAD dissection -->several LAD DEstents and a BM stent D1 2008: ?oluded D1 stent-->new PCI 2016: no ischemia on stress MIBI - History Source History Provided By: Patient, Medical Record Limitations to Obtaining History: No Limitations - Past Medical History Cardio/Vascular: Yes: CAD (coronary stenting, the last in 2007), HTN, Hyperlipdemia, MS (2 MIs, the last in 2005) Gastrointestinal: Yes: Constipation, Gastritis, GERD (chronic reflux), GI Bleed (09/15 GIB with gastirtis found at EGD in [place], [place]), Hemorrhoids, Hiatal Hernia, Other (Gastric bypass 2002, colon polyps removed) Hepatobiliary: Yes: Other (dilated CBD, fatty liver) Reproductive: Yes: Postmenopausal ...: No Endocrine: Yes: Hypothyroidism - Past Surgical History Past Surgical History: Yes: Bariatric Surgery (gastric bypass 2002), Breast Biopsy (benign right breast biopsies), Cholecystectomy (laparoscopic), Colonoscopy, Stent (several coronary stents; see "PMI"), Tonsillectomy, Upper Endoscopy Additional Surgical History: "butt lift" surgery with liposuction of abdomen and legs that leg to 4 unit PRBC transfusion bleeding - Alcohol/Substance Use Hx Alcohol Use: Yes (rare) History of Substance Use: reports: None - Smoking History Smoking history: Former smoker Have you smoked in the past 12 months: No Aproximately how many cigarettes per day: 0 If you are a former smoker, when did you quit?: 1998 - Social History Usual Living Arrangement: With Spouse ADL: Independent History of Recent Travel: Yes ([place] recently) Home Medications - Allergies Allergies/Adverse Reactions: Allergies Allergy/AdvReac Type Severity Reaction Status Date / Time No Known Allergies Allergy Verified 01/04/19 09:30 - Home Medications Home Medications: Ambulatory Orders Aspirin [ASA -] 81 mg PO DAILY 04/26/15 Atorvastatin Ca [Lipitor] 40 mg PO HS 04/26/15 Carvedilol [Coreg] 3.125 mg PO BID 04/26/15 Clopidogrel Bisulfate [Plavix -] 75 mg PO DAILY 04/26/15 Levothyroxine Sodium [Unithroid] 125 mcg PO DAILY 04/26/15 Lorazepam [Ativan] 0.5 mg PO PRN 04/26/15 Pregabalin [Lyrica] 100 mg PO BID 04/26/15 Polyethylene Glycol 3350 [Miralax] 17 gm PO BID #2 bottle 02/09/16 Cyanocobalamin Vit B-12 Inj. [Vitamin B12 Injection -] 1,000 mcg IJ ASDIR Multivitamin,Therapeutic [[place] Therapeutic] 240 ml PO DAILY 03/07/16 Pantoprazole Sodium 40 mg PO DAILY 01/04/19 Valacyclovir HCl [Valtrex -] 1,000 mg PO ASDIR 01/04/19 Family Disease History - Family Disease History Family Disease History: CA: Mother ( 45 breast and lung cancers), Other: Father (lived to ) Review of Systems - Review of Systems Constitutional: reports: No Symptoms Eyes: reports: No Symptoms HENT: reports: No Symptoms Neck: reports: No Symptoms Cardiovascular: reports: Chest Pain Respiratory: reports: No Symptoms Gastrointestinal: reports: Indigestion, Other (post gastric bypass, chronic post prandial problems) Breasts: reports: No Symptoms Reported Musculoskeletal: reports: Muscle Weakness Integumentary: reports: No Symptoms Neurological: reports: No Symptoms, Weakness, Other ("peripheral neuropathy" she was told is from Vitamin B deficiency) Endocrine: reports: No Symptoms Hematology/Lymphatic: reports: No Symptoms - Risk Factors Known Risk Factors: Yes: Age, Hypercholesterolemia, Physical Inactivity, Prior MS /Emb Stroke Vital Signs: Vital Signs Temperature 98.1 F 01/05/19 10:00 Pulse Rate 67 01/05/19 10:00 Respiratory Rate 18 01/05/19 10:00 Blood Pressure 122/55 L 01/05/19 10:00 O2 Sat by Pulse Oximetry (%) 98 01/05/19 10:00 Constitutional: Yes: Anxious Eyes: Yes: WNL HENT: Yes: WNL Neck: Yes: WNL Respiratory: Yes: WNL Gastrointestinal: Yes: Soft Renal/: No: Anuria Cardiovascular: Yes: Regular Rate and Rhythm JVD: No Carotid Bruit: No PMI: Non-Displaced Heart Sounds: Yes: S1, S2 Murmur: Yes: Systolic Murmur, Grade 1 Musculoskeletal: Yes: Muscle Weakness Extremities: Yes: Other (yana lymphedema) Edema: Yes Edema: LLE: 2+, RLE: 2+ (nonpitting; chronic (since before gastric bypass)) Peripheral Pulses WNL: Yes Integumentary: Yes: WNL Neurological: Yes: Alert, Oriented, Loss of Sensation, Weakness Psychiatric: Yes: WNL - Other Data Labs, Other Data: CBC, BMP 01/05/19 05:15 01/05/19 05:15 INR, PTT INR 1.10 (0.83-1.09) H 01/04/19 10:10 Troponin, BNP 01/04/19 01/05/19 18:30 05:15 Troponin I < 0.02 < 0.02 Troponin, BNP 01/04/19 01/05/19 18:30 05:15 Troponin I < 0.02 < 0.02 Abnormal Lab Results 01/05/19 01/05/19 05:15 05:15 WBC 3.4 L Hgb 9.7 L Hct 30.9 L MCV 79.4 L MCH 24.9 L MCHC 31.4 L RDW 17.6 H Eosinophils % 9.1 H Chloride 111 H Anion Gap 6 L Creatinine 0.4 L Calcium 8.4 L Ferritin 3.3 L Ejection Fraction %: LVEF > or = 40 % Imaging - Results Chest X-ray: Image Reviewed EKG: Image Reviewed (NSR; normal study) Problem List - Problems (1) Atypical chest pain Assessment/Plan: Sharp chest pains after eating; never while exercising. TNI < 0.02 x 1; follow serially. EKF: normal study. If TNI ix negative serially, and no hemodynamic abnormalities, pt may be discarged and followed as outpatien (Sees Dr. Phan for cardiology). Code(s): R07.89 - OTHER CHEST PAIN (2) Bariatric surgery status Code(s): Z98.84 - BARIATRIC SURGERY STATUS (3) History of myocardial infarction Code(s): I25.2 - OLD MYOCARDIAL INFARCTION (4) Hyperlipidemia Code(s): E78.5 - HYPERLIPIDEMIA, UNSPECIFIED (5) Stented coronary artery Code(s): Z95.5 - PRESENCE OF CORONARY ANGIOPLASTY IMPLANT AND GRAFT (6) Abdominal pain Code(s): R10.9 - UNSPECIFIED ABDOMINAL PAIN (7) Muscle discomfort Code(s): M79.1 - MYALGIA * DO NOT USE * (8) Thyroid disorder Code(s): E07.9 - DISORDER OF THYROID, UNSPECIFIED (9) Leukopenia Assessment/Plan: f/u WBCs, ; f/u CBC. Code(s): D72.819 - DECREASED WHITE BLOOD CELL COUNT, UNSPECIFIED (10) Anxiety Code(s): F41.9 - ANXIETY DISORDER, UNSPECIFIED (11) Lymphedema Code(s): I89.0 - LYMPHEDEMA, NOT ELSEWHERE CLASSIFIED
--- NOTE | 2019-01-05 14:46 | PN ---
Progress Note, Physician Chief Complaint: Pt A&Ox3; no further chest pain; no palpitations. History of Present Illness: The patient is a 68 year old white female, with a significant past medical history of CAD(s/p NE and cardiac stenting x5), hypertension, hyperlipidemia, bilateral LE lymphedema, and anemia, who presents to the emergency department with, 2 days of intermittent sharp, stabbing, short lasting chest pain with associated left arm tightness. Patient notes her pain to be similar to her gas, however, secondary to its continuation she reported to the ED. Patient notes a recent admission 07/2018 to a hospital in [place] for a possible GI bleed at which time she was noted to have ?peptic ulcers and anemia. She denies any palpitations or shortness of breath. She denies recent fevers, chills, headache or dizziness. She denies recent nausea, vomit, diarrhea or constipation. She denies recent dysuria, frequency, urgency or hematuria. Allergies: NKA Past surgical history: Cardiac stenting x5. Gastric bypass (04). 2002: ?NSTEMI--coronary angiogram, but no PCI 2004: gastic bypass 2006: LAD dissection -->several LAD DEstents and a BM stent D1 2008: ?oluded D1 stent-->new PCI 2016: no ischemia on stress MIBI - Current Medication List Current Medications: Active Medications Al Hydroxide/Mg Hydroxide (Mylanta Oral Suspension -) 30 ml PO Q6H PRN PRN Reason: DYSPEPSIA Aspirin (Asa -) 81 mg PO DAILY [facility] Last Admin: 01/05/19 09:28 Dose: 81 mg Atorvastatin Calcium (Lipitor -) 40 mg PO HS [facility] Last Admin: 01/04/19 21:06 Dose: 40 mg Carvedilol (Coreg -) 3.125 mg PO BID [facility] Last Admin: 01/05/19 09:28 Dose: 3.125 mg Clopidogrel Bisulfate (Plavix -) 75 mg PO DAILY [facility] Last Admin: 01/05/19 09:28 Dose: 75 mg Levothyroxine Sodium (Synthroid -) 125 mcg PO DAILY [facility] Last Admin: 01/05/19 09:28 Dose: 125 mcg Lorazepam (Ativan -) 0.5 mg PO HS PRN PRN Reason: INSOMNIA Last Admin: 01/04/19 23:31 Dose: 0.5 mg Pantoprazole Sodium (Protonix -) 40 mg PO DAILY [facility] Last Admin: 01/05/19 09:28 Dose: 40 mg Polyethylene Glycol (Miralax (For Daily Use) -) 17 gm PO BID [facility] Last Admin: 01/05/19 11:38 Dose: Not Given Pregabalin (Lyrica -) 100 mg PO BID [facility] Last Admin: 01/05/19 09:28 Dose: 100 mg - Objective Vital Signs: Vital Signs Temperature 98.1 F 01/05/19 10:00 Pulse Rate 67 01/05/19 10:00 Respiratory Rate 18 01/05/19 10:00 Blood Pressure 122/55 L 01/05/19 10:00 O2 Sat by Pulse Oximetry (%) 98 01/05/19 10:00 Labs: CBC, BMP 01/05/19 05:15 01/05/19 05:15 INR, PTT INR 1.10 (0.83-1.09) H 01/04/19 10:10 Problem List - Problems (1) Atypical chest pain Assessment/Plan: Sharp chest pains after eating; never while exercising. TNI < 0.02 x 3. EKF: normal study. Telemetry: NSR; periods of sinus tachycarida; no AF, SVT, VT. From cardiac postion, pt may be followed as an outpatient. Workup in progress regarding leukopenia, anemia. Code(s): R07.89 - OTHER CHEST PAIN (2) Bariatric surgery status Code(s): Z98.84 - BARIATRIC SURGERY STATUS (3) History of myocardial infarction Code(s): I25.2 - OLD MYOCARDIAL INFARCTION (4) Hyperlipidemia Code(s): E78.5 - HYPERLIPIDEMIA, UNSPECIFIED (5) Stented coronary artery Code(s): Z95.5 - PRESENCE OF CORONARY ANGIOPLASTY IMPLANT AND GRAFT (6) Abdominal pain Code(s): R10.9 - UNSPECIFIED ABDOMINAL PAIN (7) Muscle discomfort Code(s): M79.1 - MYALGIA * DO NOT USE * (8) Thyroid disorder Code(s): E07.9 - DISORDER OF THYROID, UNSPECIFIED (9) Leukopenia Code(s): D72.819 - DECREASED WHITE BLOOD CELL COUNT, UNSPECIFIED (10) Anxiety Code(s): F41.9 - ANXIETY DISORDER, UNSPECIFIED (11) Lymphedema Code(s): I89.0 - LYMPHEDEMA, NOT ELSEWHERE CLASSIFIED
[2019-01-05] MEDS: ATORVASTATIN CA 40 MG TABLET (FP) PO SCH (21:45)
[2019-01-05] MEDS: LORazepam 0.5 MG TABLET PO PRN (23:03)
[2019-01-06 08:08] LABS: SERUM IRON SATURATION 8 % (15-55); TOTAL IRON BINDING CAPACITY 323 ug/dL (250-450); UIBC 296 ug/dL (118-369)
--- NOTE | 2019-01-06 09:47 | DS ---
Physical Examination Vital Signs: Vital Signs Temperature 98.0 F 01/06/19 06:00 Pulse Rate 70 01/06/19 06:00 Respiratory Rate 18 01/06/19 08:02 Blood Pressure 127/51 L 01/06/19 06:00 O2 Sat by Pulse Oximetry (%) 98 01/06/19 08:02 Findings/Remarks: feels well wants to go home, cleared by cardiology; no CP/SOB no GI bleed; seen gy GI and heme - OK to DC and f/u as advised dw pt Constitutional: Yes: No Distress, Calm Eyes: Yes: Conjunctiva Clear HENT: Yes: Atraumatic Neck: Yes: Supple Cardiovascular: Yes: Regular Rate and Rhythm Respiratory: Yes: CTA Bilaterally Gastrointestinal: Yes: Soft. No: Tenderness Renal/: No: CVA Tenderness - Left, CVA Tenderness - Right Musculoskeletal: No: Joint Stiffness, Joint Swelling Extremities: No: Cold, Cool, Cyanosis Edema: No Integumentary: No: Rash, Venous Stasis Changes Neurological: Yes: WNL, Alert, Oriented ...Motor Strength: WNL Psychiatric: Yes: WNL, Alert, Oriented. No: Agitated, Suicidal Ideation Labs: CBC, BMP 01/05/19 05:15 01/05/19 05:15 Discharge Summary Reason For Visit: CHEST PAIN Current Active Problems Anxiety (Acute) Atypical chest pain (Acute) Bariatric surgery status (Acute) Chest pain (Acute) Constipation (Acute) Dilated bile duct (Acute) Fatty (change of) liver, not elsewhere classified (Acute) Flatulence/gas pain/belching (Acute) Gastric bypass status for obesity (Acute) Gastritis (Acute) Hiatal hernia with GERD (Acute) History of colon polyps (Acute) History of myocardial infarction (Acute) Hyperlipidemia (Acute) Hypothyroid (Acute) Leukopenia (Acute) Lymphedema (Acute) Occult blood in stools (Acute) Post-polypectomy bleeding (Acute) Rectal bleeding (Acute) Stented coronary artery (Acute) Procedures: Principal: 68 YOF HTN ASHD stent; gastric bypass; PUDs, hemorroids; admitted with CP/lower GI bleed Other Procedures: CE negative; seen by GI< cardiology; OK to DC home and f/u outpt;. also seen by heme for low WBC; outpt w/u and f/u; consider IV iron Hospital Course: improved with above; LATOYA negative; DC home f/u as advised Condition: Improved - Instructions Diet, Activity, Other Instructions: f/u PCP in 1-2 weeks f/u pending labs from H; f/u cardiology, GI< EGD colonoscopy outpt; hematology eval for low WBC & anemia RTER if worse or recurrent c/o Referrals: Leta Owusu [Primary Care Provider] - Lefty Mathews MD [Staff Physician] - Wm Cook MD [Staff Physician] - Jose Rust MD [Staff Physician] - Disposition: HOME - Home Medications Comprehensive Discharge Medication List: Ambulatory Orders Aspirin [ASA -] 81 mg PO DAILY 04/26/15 Atorvastatin Ca [Lipitor] 40 mg PO HS 04/26/15 Carvedilol [Coreg] 3.125 mg PO BID 04/26/15 Clopidogrel Bisulfate [Plavix -] 75 mg PO DAILY 04/26/15 Levothyroxine Sodium [Unithroid] 125 mcg PO DAILY 04/26/15 Lorazepam [Ativan] 0.5 mg PO PRN 04/26/15 Pregabalin [Lyrica] 100 mg PO BID 04/26/15 Polyethylene Glycol 3350 [Miralax] 17 gm PO BID #2 bottle 02/09/16 Cyanocobalamin Vit B-12 Inj. [Vitamin B12 Injection -] 1,000 mcg IJ ASDIR Multivitamin,Therapeutic [[place] Therapeutic] 240 ml PO DAILY 03/07/16 Pantoprazole Sodium 40 mg PO DAILY 01/04/19 Valacyclovir HCl [Valtrex -] 1,000 mg PO ASDIR 01/04/19
[2019-01-06] MEDS: PREGABALIN 100 MG CAPSULE PO SCH (10:03)
[2019-01-06] MEDS: PANTOPRAZOLE 40 MG TABLET (FP) PO SCH (10:03)
[2019-01-06] MEDS: LEVOTHYROXINE NA 125 MCG TABLET (FP) PO SCH (10:03)
[2019-01-06] MEDS: CARVEDILOL 3.125 MG TABLET (FP) PO SCH (10:04)
[2019-01-06] MEDS: CLOPIDOGREL BISULFATE 75 MG TABLET (FP) PO SCH (10:04)
[2019-01-06] MEDS: ASPIRIN 81 MG CHEWABLE TABLETS PO SCH (10:04)
[2019-01-06] MEDS: POLYETHYLENE GLYCOL 3350 119 GM BTL PO SCH (10:05)
[2019-01-06 10:26] VITALS: BP 132/58; PULSE 73; TEMP 98.2
--- NOTE | 2019-01-06 12:02 | CONSULT ---
Consult Consult Specialty:: Hematology Referred by:: Medicine Reason for Consultation:: Anemia, leukopenia - History of Present Illness Chief Complaint: Hb and WCC below baseline. History of Present Illness: Patient with significant history of CAD, presented with chest discomfort, cardiac etiology ruled out, noted to have newly developed microcytic anemia and mild leukopenia. Recent concern about possible GI bleed ([place] in July) - endoscopy anticipated. Denies fevers. No prior history of leukopenia known to patient.. Review of records significant for mild eosinophilia - long-standing. No family history of hematological disease. - History Source History Provided By: Patient, Medical Record Limitations to Obtaining History: No Limitations - Past Medical History Cardio/Vascular: Yes: CAD (coronary stenting, the last in 2007), HTN, Hyperlipdemia, CO (2 MIs, the last in 2005) Gastrointestinal: Yes: Constipation, Gastritis, GERD (chronic reflux), GI Bleed (09/15 GIB with gastirtis found at EGD in [place], [place]), Hemorrhoids, Hiatal Hernia, Other (Gastric bypass 2002, colon polyps removed) Hepatobiliary: Yes: Other (dilated CBD, fatty liver) ...: No Endocrine: Yes: Hypothyroidism - Past Surgical History Past Surgical History: Yes: Bariatric Surgery (gastric bypass 2002), Breast Biopsy (benign right breast biopsies), Cholecystectomy (laparoscopic), Colonoscopy, Stent (several coronary stents; see "PMI"), Tonsillectomy, Upper Endoscopy Additional Surgical History: "butt lift" surgery with liposuction of abdomen and legs that leg to 4 unit PRBC transfusion bleeding - Alcohol/Substance Use Hx Alcohol Use: Yes (rare) History of Substance Use: reports: None - Smoking History Smoking history: Former smoker Have you smoked in the past 12 months: No Aproximately how many cigarettes per day: 0 If you are a former smoker, when did you quit?: 1998 - Social History Usual Living Arrangement: With Spouse ADL: Independent History of Recent Travel: Yes ([place] recently) Home Medications - Allergies Allergies/Adverse Reactions: Allergies Allergy/AdvReac Type Severity Reaction Status Date / Time No Known Allergies Allergy Verified 01/04/19 09:30 - Home Medications Home Medications: Ambulatory Orders Aspirin [ASA -] 81 mg PO DAILY 04/26/15 Atorvastatin Ca [Lipitor] 40 mg PO HS 04/26/15 Carvedilol [Coreg] 3.125 mg PO BID 04/26/15 Clopidogrel Bisulfate [Plavix -] 75 mg PO DAILY 04/26/15 Levothyroxine Sodium [Unithroid] 125 mcg PO DAILY 04/26/15 Lorazepam [Ativan] 0.5 mg PO PRN 04/26/15 Pregabalin [Lyrica] 100 mg PO BID 04/26/15 Polyethylene Glycol 3350 [Miralax] 17 gm PO BID #2 bottle 02/09/16 Cyanocobalamin Vit B-12 Inj. [Vitamin B12 Injection -] 1,000 mcg IJ ASDIR Multivitamin,Therapeutic [[place] Therapeutic] 240 ml PO DAILY 03/07/16 Pantoprazole Sodium 40 mg PO DAILY 01/04/19 Iron Polysaccharides [Niferex-150 -] 150 mg PO DAILY #30 capsule 01/06/19 Mag Hydrox/Al Hydrox/Simeth [Mylanta Oral Suspension -] 30 ml PO Q6H PRN cup Valacyclovir HCl [Valtrex -] 500 mg PO DAILY #30 tab 01/06/19 Family Disease History - Family Disease History Family Disease History: CA: Mother ( 45 breast and lung cancers), Other: Father (lived to ) Review of Systems - Review of Systems Constitutional: reports: No Symptoms. denies: Fever, Unintentional Wgt. Loss Neck: denies: Swollen Glands Cardiovascular: reports: Chest Pain (As described, now resolved.). denies: Shortness of Breath Respiratory: reports: No Symptoms Gastrointestinal: reports: Rectal Bleeding (Prior, not presently.) Neurological: reports: No Symptoms Hematology/Lymphatic: denies: Easily Bruised Psychiatric: reports: No Symptoms Physical Exam Vital Signs: Vital Signs Temperature 98.2 F 01/06/19 10:00 Pulse Rate 73 01/06/19 10:00 Respiratory Rate 18 01/06/19 10:00 Blood Pressure 132/58 L 01/06/19 10:00 O2 Sat by Pulse Oximetry (%) 98 01/06/19 08:02 Constitutional: Yes: Well Nourished, No Distress Eyes: Yes: Conjunctiva Clear HENT: Yes: Normocephalic Neck: Yes: Trachea Midline. No: Lymphadenopathy Cardiovascular: Yes: Regular Rate and Rhythm Respiratory: Yes: Regular. No: Accessory Muscle Use Gastrointestinal: Yes: WNL Musculoskeletal: No: Joint Swelling Extremities: Yes: WNL Edema: No Integumentary: No: Rash Neurological: Yes: Alert, Oriented ...Motor Strength: WNL Psychiatric: Yes: Alert, Oriented Labs: CBC, BMP 01/05/19 05:15 01/05/19 05:15 Assessment/Plan Iron deficiency anemia, in context of prior bariatric surgery (with impaired absorption), and likely recent GI bleed. Iron deficit approximately 1000mgs - will require IV repletion - can be arranged as outpatient - will communicate with Dr Rust's practice to set her up for infusion. Patient will need to followup with GI, to address possible clinically significant GI hemorrhage. Mild leukopenia of questionable significance. Not neutropenic, mild lymphopenia. Long-standing mild eosinophilia - unclear etiology. See no red flags as regards to white cell profile suggesting need for active investigation at this time. Recommend ongoing observation, can consider directed investigation in the future if abnormal findings progress or persist.
[2019-01-06 17:07] LABS: TRANSGLUTAMINASE IGA < 2 U/mL (0-3); TRANSGLUTAMINASE IGG 4 U/mL (0-5)
[2019-01-09 05:16] LABS: ALPHA 2 MACROGLOBULINS,QN 232 mg/dL (110-276); ALT(SGPT)P5P 16 IU/L (0-40); CHOLESTEROL TOTAL 98 mg/dL (100-199); GGT= 8 IU/L (0-60); GLUCOSE SERUM 82 mg/dL (65-99); HEIGHT 66 in (.); WEIGHT- 176 LBS (.)
== END 2019-01-06 13:44 | disposition home or self-care (01) | DRG 313 ==
LOC: JER 09:11 → JERBED 11:55 → J4S 16:30
PROVIDERS: ADMIT Internal Medicine; ATTEND Internal Medicine
DX: R07.89 Other chest pain (principal); K62.5 Hemorrhage of anus and rectum; K64.8 Other hemorrhoids; I25.10 Atherosclerotic heart disease of native coronary artery without angina pectoris; I25.2 Old myocardial infarction; E78.5 Hyperlipidemia, unspecified; F64.9 Gender identity disorder, unspecified; I10 Essential (primary) hypertension; D51.9 Vitamin B12 deficiency anemia, unspecified; R91.8 Other nonspecific abnormal finding of lung field; E03.9 Hypothyroidism, unspecified; K21.9 Gastro-esophageal reflux disease without esophagitis; K29.70 Gastritis, unspecified, without bleeding; K44.9 Diaphragmatic hernia without obstruction or gangrene; K76.0 Fatty (change of) liver, not elsewhere classified; K82.8 Other specified diseases of gallbladder; R14.0 Abdominal distension (gaseous); R19.5 Other fecal abnormalities; K59.00 Constipation, unspecified; D50.9 Iron deficiency anemia, unspecified; F41.9 Anxiety disorder, unspecified; I89.0 Lymphedema, not elsewhere classified; D72.819 Decreased white blood cell count, unspecified; Z95.5 Presence of coronary angioplasty implant and graft; Z98.84 Bariatric surgery status; Z86.010 Personal history of colon polyps
CPT/HCPCS: 36415; 71045-TC-FY; 80048; 80053; 82172; 82247; 82272; 82465; 82550; 82607; 82728; 82746; 82947; 82977; 83010; 83516; 83540; 83550; 83735; 83883; 84155; 84165; 84450; 84460; 84478; 84484; 85025; 85044; 85610; 93005; 93010; 99283-25

== ENCOUNTER 2019-03-14 09:08 | Day surgery (SDC) | payer OTHER, MEDICARE ==
[2019-03-14] MEDS ORDERED: IRON SUCROSE INJECTION 200 MG in SODIUM CHLORIDE 100 ML IVPB ONE (12:00)
[2019-03-14 15:49] VITALS: BP 118/67; PULSE 83; TEMP 98.6
== END 2019-03-14 16:00 | disposition home or self-care (01) ==
LOC: JONCNONCHE 09:08 → J7W 13:51 → JONCNONCHE 16:00
PROVIDERS: ATTEND Internal Medicine Hematology & Oncology
PROC: 3E033GC Introduction of Other Therapeutic Substance into Peripheral Vein, Percutaneous Approach (ICD-10-PCS; principal; 2019-03-14)
DX: D50.9 Iron deficiency anemia, unspecified (principal)
CPT/HCPCS: 96365; J1756

== ENCOUNTER 2019-03-21 07:10 | Day surgery (SDC) | payer OTHER, MEDICARE | END 2019-03-21 14:55 | disposition home or self-care (01) | LOC: JONCCHEMO 07:10 → J7W 13:50 → JONCCHEMO 14:55 ==

== ENCOUNTER 2019-04-04 06:59 | Day surgery (SDC) | payer OTHER, MEDICARE | END 2019-04-04 15:20 | disposition home or self-care (01) | LOC: JONCCHEMO 06:59 → J7W 13:40 → JONCCHEMO 15:20 ==

== ENCOUNTER 2019-06-24 11:44 | Day surgery (SDC) | payer OTHER, MEDICARE ==
[2019-06-24] MEDS ORDERED: ZOLEDRONIC ACID/MAN/WATER 5 MG/100 ML INFUS..BTL IVPB ONE (13:00)
[2019-06-24 13:23] LABS: ALBUMIN 3.6 g/dl (3.4-5.0); BILIRUBIN,TOTAL 0.5 mg/dL (0.2-1); BLOOD UREA NITROGEN 10.6 mg/dL (7-18); CALCIUM 8.4 mg/dL (8.5-10.1); CREATININE 0.7 mg/dL (0.55-1.3); POTASSIUM 4.8 mmol/L (3.5-5.1); TOT PROT 6.1 g/dl (6.4-8.2)
[2019-06-24] MEDS ORDERED: ACETAMINOPHEN 325 MG TABLET (FP) PO ONE (13:30)
[2019-06-24] MEDS ORDERED: ACETAMINOPHEN 325 MG TABLET (FP) ONE (13:35)
[2019-06-24 14:05] VITALS: TEMP 97.9
[2019-06-24 15:16] VITALS: BP 133/74; PULSE 80
== END 2019-06-24 14:56 | disposition home or self-care (01) ==
LOC: JCHEMO 11:44
PROVIDERS: ATTEND Internal Medicine
PROC: 3E033GC Introduction of Other Therapeutic Substance into Peripheral Vein, Percutaneous Approach (ICD-10-PCS; principal; 2019-06-24)
DX: M81.0 Age-related osteoporosis without current pathological fracture (principal)
CPT/HCPCS: 36415; 80053; 96365; J3489